=== PATIENT | female | born 1945 | race Caucasian/White ===

== ENCOUNTER → 2016-10-09 | Outpatient (CLI) | payer MEDICARE ==
[~2016-10-09] MED LIST: ACETAMINOPHEN; ACID CONTROL150 MG PO; ALBUTEROL; ALBUTEROL17 GM; ARIMIDEX1 MG PO; CANASA1000 MG/S1 RC; CANASA1000 MG/SU PR; CIPRO; CIPRO PO; CLONIDINE HCL0.1 MG PO; CLONIDINE PO; DARVOCET-N 1001 TAB PO; DAYPRO600 M1 PO; DITROPAN PO; DITROPAN XL PO; DITROPAN5 MG PO; DURAGESIC; FLOMAX0.4 MG; GLUCOPHAGE XR500 MG PO; HYDROCODON-ACE1 EACH PO; IMITREX PO; IMITREX25 MG; INDOCIN SR75 MG PO; LEVAQUIN PO; LEVAQUIN750 MG PO; LEVASTATIN; LIDOCAINE 5%; LIDOCAINE 5% TOP; LIDODERM30 EA TOP; LISINOPRIL10 MG PO; LORTAB 10/500 T1 TAB; LORTAB 10/500 T1 TAB PO; LORTAB 5/500 TA1 TA1 PO; LOVASTATIN10 MG PO; MACROBID100 MG PO; METFORMIN PO; MEVACOR PO; MOBIC PO; NEURONTIN PO; NEURONTIN300 MG PO; NYSTATIN15 GM OINT EXT; OXAPROZIN600 MG PO; PAXIL PO; POLYOX WSR-3011 GM MC; RELPAX40 MG; SODIUM BICARBO650 MG PO; SUMATRIPTAN SU100 MG PO; VENTOLIN5 MG/ML INH; VESICARE PO; VESICARE5 MG PO; VICODIN 5/500 T1 TAB; VICODIN 5/500 T1 TAB PO; ZANTAC PO; ZANTAC150 M1 PO; ZETIA PO; ZOFRAN; [UNRECOGNIZED DRUG - OTHER] RC
[2016-10-09 13:32] LABS: URINE APPEARANCE CLOUDY; URINE BILIRUBIN NEG (NEG); URINE BLOOD 3+ (NEG); URINE COLOR YELLOW; URINE GLUCOSE NEG (NORM); URINE KETONE NEG (NEG); URINE LEUKOCYTE ESTERASE 2+ (NEG); URINE NITRATE POS (NEG); URINE PROTEIN 1+ (NEG); URINE SPECIFIC GRAVITY 1.015 (1.003-1.035); URINE UROBILINOGEN 0.2 MG/DL (NORM)
[2016-10-09 13:36] LABS: MICRO INDICATED? YES; URINE SOURCE CLEAN CATCH
[2016-10-09 14:07] LABS: BUN/CREATININE RATIO 15.55; CALCIUM SERUM 9.4 mg/dL (8.4-10.2); CREATININE SERUM 2.7 mg/dL (0.6-1.4); GLOM FILT RATE Estimated 16.8 mL/min (>60); POTASSIUM 3.8 mmol/L (3.5-5.1)
[2016-10-09 14:10] LABS: BASOPHIL# 0.1 X10e3 (0-0.3); BASOPHIL% 0.8 % (0-2.5); EOSINOPHIL# 0.1 X10e3 (0-0.7); EOSINOPHIL% 1.6 % (0.0-7.0); HEMATOCRIT 38.8 % (35.0-45.0); HEMOGLOBIN 11.9 gm/dL (12.0-16.0); LYMPHOCYTE% 25.9 % (17.0-45.0); MEAN CELL VOLUME 94.1 FL (83-96); MEAN CORPUSCULAR HEMOGLOBIN 28.7 PG (28-34); MEAN CORPUSCULAR HGB CONC 30.6 g/dL (30-36); MEAN PLATELET VOLUME 8.4 FL (6.5-11.5); MONOCYTE# 0.8 X10e3 (0-1.0); MONOCYTE% 10.9 % (3.0-12.0); NEUTROPHIL# 4.7 X10e3 (1.5-7.1); NEUTROPHIL% 60.8 % (40-75); PLATELET COUNT 434 X10e3 (140-420); RED BLOOD COUNT 4.13 X10e (3.90-5.30); RED CELL DISTRIBUTION WIDTH 15.5 % (11.0-15.5); WHITE BLOOD COUNT 7.7 X10e3 (4.0-10.5)
[2016-10-09 14:16] LABS: URINE BACTERIA 3+ (NEG); URINE SQUAMOUS EPITHELIAL CELL FEW /[HPF]; URINE WBC INNUM /[HPF] (0-5)
[2016-10-09 14:19] LABS: DIFF IND NO
[2016-10-16 13:36] LABS: CALCIUM (PTHINTACT) 10.1 mg/dL (8.6-10.4)
== END | disposition home or self-care (01) ==
LOC: SLAB 13:11
PROVIDERS: Internal Medicine Nephrology
DX: N18.4 Chronic kidney disease, stage 4 (severe) (principal)
CPT/HCPCS: 36415; 80048; 81003; 82306; 82310; 83970; 84100; 85025

== ENCOUNTER 2016-12-26 13:32 | Emergency (ER) | payer OTHER ==
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
[~2016-12-26 13:32] MED LIST changes: -ALBUTEROL17 GM; -ARIMIDEX1 MG PO; -IMITREX25 MG; -POLYOX WSR-3011 GM MC; -ZOFRAN
[2016-12-26] MEDS ORDERED: POLYOX WSR-3011 GM MC (13:46)
[2016-12-26] MEDS ORDERED: IMITREX25 MG (13:46)
[2016-12-26] MEDS ORDERED: ZOFRAN (13:46)
[2016-12-26] MEDS ORDERED: ALBUTEROL17 GM (13:47)
[2016-12-26] MEDS ORDERED: ARIMIDEX1 MG PO (13:47)
== END 2016-12-26 15:18 | disposition home or self-care (01) ==
LOC: SED 13:32
DX: S20.211A Contusion of right front wall of thorax, initial encounter (principal); Z88.2 Allergy status to sulfonamides; Z88.8 Allergy status to other drugs, medicaments and biological substances; V89.2XXA Person injured in unspecified motor-vehicle accident, traffic, initial encounter; Y92.9 Unspecified place or not applicable
CPT/HCPCS: 36415; 71101; 74176; 99284

== ENCOUNTER → 2016-12-26 | Outpatient (CLI) | payer MEDICARE ==
[2016-12-26 12:28] LABS: BASOPHIL# 0.1 X10e3 (0-0.3); BASOPHIL% 0.6 % (0-2.5); DIFF IND NO; EOSINOPHIL# 0.1 X10e3 (0-0.7); EOSINOPHIL% 1.1 % (0.0-7.0); HEMATOCRIT 34.4 % (35.0-45.0); HEMOGLOBIN 11.1 gm/dL (12.0-16.0); LYMPHOCYTE# 1.6 X10e3 (1.0-3.5); LYMPHOCYTE% 15.4 % (17.0-45.0); MEAN CELL VOLUME 93.5 FL (83-96); MEAN CORPUSCULAR HEMOGLOBIN 30.1 PG (28-34); MEAN CORPUSCULAR HGB CONC 32.2 g/dL (30-36); MONOCYTE% 9.7 % (3.0-12.0); NEUTROPHIL# 7.7 X10e3 (1.5-7.1); NEUTROPHIL% 73.2 % (40-75); PLATELET COUNT 404 X10e3 (140-420); RED BLOOD COUNT 3.68 X10e (3.90-5.30); RED CELL DISTRIBUTION WIDTH 16.3 % (11.0-15.5); WHITE BLOOD COUNT 10.6 X10e3 (4.0-10.5)
[2016-12-26 12:41] LABS: ALBUMIN SERUM 3.4 g/dL (3.5-5.0); BILIRUBIN,TOTAL 0.6 mg/dL (0.2-2.0); BUN/CREATININE RATIO 13.84; CALCIUM SERUM 8.8 mg/dL (8.4-10.2); CREATININE SERUM 2.6 mg/dL (0.6-1.4); GLOM FILT RATE Estimated 17.6 mL/min (>60); POTASSIUM 3.7 mmol/L (3.5-5.1)
[2016-12-26 12:50] LABS: URINE APPEARANCE CLOUDY; URINE BILIRUBIN NEG (NEG); URINE BLOOD 2+ (NEG); URINE COLOR YELLOW; URINE GLUCOSE NEG (NORM); URINE KETONE NEG (NEG); URINE LEUKOCYTE ESTERASE 3+ (NEG); URINE NITRATE NEG (NEG); URINE PROTEIN TRACE (NEG); URINE UROBILINOGEN 0.2 MG/DL (NORM)
[2016-12-26 12:51] LABS: MICRO INDICATED? YES
[2016-12-26 12:52] LABS: URINE BACTERIA 3+ (NEG); URINE WBC INNUM /[HPF] (0-5)
[2016-12-26 12:53] LABS: URINE SQUAMOUS EPITHELIAL CELL OCCAS /[HPF]
[2016-12-26 15:25] LABS: CREATININE,RANDOM URINE 57 mg/dL; TOTAL PROTEIN,RANDOM URINE 68 mg/dl (<10)
== END | disposition home or self-care (01) ==
LOC: SLAB 12:08
PROVIDERS: Internal Medicine Nephrology
DX: N18.3 Chronic kidney disease, stage 3 (moderate) (principal)
CPT/HCPCS: 36415; 80053; 81003; 82310; 82570; 83970; 84100; 84156; 85025